=== PATIENT | male | born 1965 | race Caucasian/White ===

== ENCOUNTER 2021-06-30 16:57 | Inpatient (IN) | payer OTHER ==
[~2021-06-30] VITALS: Ht 177.8 cm; Wt 65.3 kg
[~2021-06-30 16:57] MED LIST: ZOFRAN4 MG PO
[2021-06-30 17:13] VITALS: BP 184/115
[2021-06-30 17:36] LABS: ABSOLUTE BASOPHILS 0.1 thou/uL (0.0-0.2); ABSOLUTE EOSINOPHILS 0.1 thou/uL (0.0-0.7); ABSOLUTE MONOCYTES 0.5 thou/uL (0.0-1.2); ABSOLUTE NEUTROPHILS 6.7 thou/uL (1.6-8.1); BASOPHILS 1.2 %; EOSINOPHILS 0.7 %; HEMATOCRIT 38.2 % (42.0-52.0); HEMOGLOBIN 13.1 gm/dL (14.0-18.0); LYMPHOCYTES 21.4 %; MCH 35.9 pg (26.0-34.0); MCHC 34.3 g/dL (28.0-37.0); MCV 104.9 fL (80.0-100.0); MONOCYTES 5.8 %; MPV 8.1 fl. (7.2-11.1); NUCLEATED RBCS 0 /100WBC; PLATELET COUNT* 153 thou/uL (150-400); POLYS 70.9 %; RBC 3.64 mil/uL (4.50-6.00); RDW-CV 13.5 % (10.5-14.5); WBC 9.5 thou/uL (4.0-11.0)
[2021-06-30 17:49] LABS: CALCIUM 8.5 mg/dL (8.5-10.1); CREATININE 0.8 mg/dL (0.6-1.3); POTASSIUM 3.5 mmol/L (3.5-5.1)
[2021-06-30 20:03] LABS: URINE BILIRUBIN NEGATIVE (Negative); URINE BLOOD 2+ (Negative); URINE CLARITY CLEAR; URINE COLOR YELLOW; URINE GLUCOSE-RANDOM NEGATIVE (Negative); URINE KETONES NEGATIVE (Negative); URINE LEUKOCYTES-REFLEX NEGATIVE (Negative); URINE NITRITE-REFLEX NEGATIVE (Negative); URINE PROTEIN TRACE (Negative); URINE SPECIFIC GRAVITY <= 1.005 (1.005-1.030)
[2021-06-30 20:13] LABS: BACTERIA-REFLEX 1-9 Few /HPF (None Seen); CASTS None Seen /LPF (None Seen); SQUAMOUS 0-3 Few /LPF (0-3); URINE RBC 3-10 Few /HPF (0-2); URINE WBC-REFLEX 0-5 Rare /HPF (0-5)
[2021-06-30 20:14] LABS: CRYSTALS None Seen /LPF (None Seen)
[2021-06-30 23:20] LABS: INFLUENZA A ANTIGEN Negative (Negative); INFLUENZA B ANTIGEN Negative (Negative)
[2021-07-01] VITALS (7 sets, daily range): BP systolic 144–175; BP diastolic 79–105
[2021-07-01 16:38] LABS: AMP/METHAMP Negative (Negative); BARBITURATES Negative (Negative); BENZODIAZEPINES Negative (Negative); COCAINE Negative (Negative); METHADONE Negative (Negative); OPIATES POSITIVE (Negative); PCP Negative (Negative); THC Negative (Negative)
--- NOTE | 2021-07-01 16:39 | EKG ---
[place] [address] ELECTROCARDIOGRAM REPORT Name: CLEVELANDSTEPHEN Room: [place] [address] ADM IN [facility]#: [id number] Admission: 06/30/21 Attend Phys: Giulia Sanderson, Discharge: Date of : 65 Date of Service: 06/30/21 1734 Report #: [id number] THIS REPORT FOR: //name// [facility] ED Test Date: 2021-06-30 Test Time: 17:34:00 Pat Name: STEPHEN CLEVELAND Department: Room: [facility] Gender: M Tour Actor: LUCHO : 1965 Requested By: Georgiana Gomes Order Number: [id number] MD: Gregory Mac Measurements Intervals [place] Rate: 95 P: 57 IL: 205 QRS: 67 QRSD: 113 T: 60 QT: 396 QTc: 498 Interpretive Statements Sinus rhythm Prolonged [place] interval Probable left atrial enlargement Inferior infarct, old Baseline wander in lead(s) I,II,aVR,V1 No previous ECG available for comparison Electronically Signed On 07-01-2021 16:39:21 [employer] by Gregory Mac [email or web address] <ELECTRONICALLY SIGNED> By: Gregory Mac MD, FACC 07/01/21 1639 1734 1734 Gregory Mac MD, FAC /EPI
[2021-07-02 00:32] VITALS: BP 182/112
[2021-07-02 04:02] LABS: HEMATOCRIT 39.2 % (42.0-52.0); HEMOGLOBIN 13.1 gm/dL (14.0-18.0); MCH 35.3 pg (26.0-34.0); MCHC 33.4 g/dL (28.0-37.0); MCV 105.6 fL (80.0-100.0); MPV 9.6 fl. (7.2-11.1); NUCLEATED RBCS 0 /100WBC; PLATELET COUNT* 148 thou/uL (150-400); RBC 3.71 mil/uL (4.50-6.00); RDW-CV 13.6 % (10.5-14.5)
[2021-07-02 04:19] LABS: CALCIUM 8.4 mg/dL (8.5-10.1); CREATININE 0.8 mg/dL (0.6-1.3); POTASSIUM 3.4 mmol/L (3.5-5.1)
[2021-07-02 04:40] VITALS: BP 163/97
[2021-07-02 06:26] LABS: ABSOLUTE LYMPHOCYTES 0.6 thou/uL (0.8-5.3); ABSOLUTE MONOCYTES 0.8 thou/uL (0.0-1.2); ABSOLUTE NEUTROPHILS 10.6 thou/uL (1.6-8.1)
[2021-07-02 06:27] LABS: PLATELET ESTIMATE ADEQUATE
[2021-07-02 06:28] LABS: LARGE PLATELETS OCCASIONAL; MACROCYTES 1+
[2021-07-02 08:00] VITALS: BP 172/89
[2021-07-02 11:30] VITALS: BP 136/92
[2021-07-02 16:24] VITALS: BP 154/91
[2021-07-02 19:40] VITALS: BP 159/89
[2021-07-03 00:21] VITALS: BP 183/109
[2021-07-03 04:15] LABS: HEMATOCRIT 36.2 % (42.0-52.0); HEMOGLOBIN 12.2 gm/dL (14.0-18.0); MCH 35.5 pg (26.0-34.0); MCHC 33.7 g/dL (28.0-37.0); MCV 105.2 fL (80.0-100.0); MPV 9.8 fl. (7.2-11.1); RBC 3.44 mil/uL (4.50-6.00); RDW-CV 13.3 % (10.5-14.5); WBC 8.9 thou/uL (4.0-11.0)
[2021-07-03 04:22] LABS: CALCIUM 8.2 mg/dL (8.5-10.1); CREATININE 0.8 mg/dL (0.6-1.3); MAGNESIUM 1.4 mg/dL (1.8-2.4); POTASSIUM 3.4 mmol/L (3.5-5.1)
[2021-07-03 04:43] VITALS: BP 181/103
[2021-07-03 07:56] VITALS: BP 176/108
[2021-07-03 12:00] VITALS: BP 157/91
[2021-07-03 16:00] VITALS: BP 165/97
[2021-07-03 20:00] VITALS: BP 151/99
[2021-07-04] VITALS (7 sets, daily range): BP systolic 139–165; BP diastolic 91–109
[2021-07-04 04:19] LABS: ABSOLUTE LYMPHOCYTES 0.4 thou/uL (0.8-5.3); ABSOLUTE MONOCYTES 0.5 thou/uL (0.0-1.2); ABSOLUTE NEUTROPHILS 6.4 thou/uL (1.6-8.1); BASOPHILS 0.1 %; HEMATOCRIT 36.9 % (42.0-52.0); HEMOGLOBIN 12.5 gm/dL (14.0-18.0); MCH 35.5 pg (26.0-34.0); MCHC 33.9 g/dL (28.0-37.0); MCV 104.8 fL (80.0-100.0); MONOCYTES 6.5 %; MPV 10.1 fl. (7.2-11.1); NUCLEATED RBCS 0 /100WBC; PLATELET COUNT* 137 thou/uL (150-400); POLYS 87.4 %; RBC 3.52 mil/uL (4.50-6.00); RDW-CV 13.4 % (10.5-14.5); WBC 7.3 thou/uL (4.0-11.0)
[2021-07-04 04:31] LABS: ALBUMIN 2.6 g/dL (3.4-5.0); CALCIUM 8.2 mg/dL (8.5-10.1); CREATININE 0.9 mg/dL (0.6-1.3); MAGNESIUM 1.4 mg/dL (1.8-2.4); PHOSPHORUS* 3.7 mg/dL (2.5-4.9); POTASSIUM 3.8 mmol/L (3.5-5.1); TOTAL BILIRUBIN 0.4 mg/dL (<0.1-1.0)
[2021-07-04] MEDS ORDERED: NORVASC5 MG PO (11:06)
[2021-07-04] MEDS ORDERED: PREDNISONE 10 M10 MG PO (11:08)
[2021-07-04] MEDS ORDERED: LEVOFLOXACIN500 MG PO (11:08)
[2021-07-05 00:22] VITALS: BP 163/100
[2021-07-05 05:15] VITALS: BP 166/96
[2021-07-05 08:10] VITALS: BP 168/99
[2021-07-05 12:00] VITALS: BP 158/89
[2021-07-05 14:26] VITALS: BP 158/89
[2021-07-05 16:00] VITALS: BP 134/87
== END 2021-07-05 17:09 | disposition home or self-care (01) | DRG 177 ==
LOC: M.ERS 16:57 → M.TBA-ER 20:14 → M.ORTHSURG 07-01 19:14 → M.2W 07-04 16:35
PROVIDERS: Internal Medicine; Physician Assistant; ADMIT Internal Medicine; ATTEND Internal Medicine
DX: J69.0 Pneumonitis due to inhalation of food and vomit (principal); J96.01 Acute respiratory failure with hypoxia; G92.9 Unspecified toxic encephalopathy; N12 Tubulo-interstitial nephritis, not specified as acute or chronic; T17.890A Other foreign object in other parts of respiratory tract causing asphyxiation, initial encounter; K59.00 Constipation, unspecified; F10.20 Alcohol dependence, uncomplicated; X58.XXXA Exposure to other specified factors, initial encounter; T50.905A Adverse effect of unspecified drugs, medicaments and biological substances, initial encounter; K52.9 Noninfective gastroenteritis and colitis, unspecified; B99.8 Other infectious disease; H10.89 Other conjunctivitis; F17.200 Nicotine dependence, unspecified, uncomplicated; Z20.822 Contact with and (suspected) exposure to COVID-19; Z79.899 Other long term (current) drug therapy; Y93.89 Activity, other specified; Y92.89 Other specified places as the place of occurrence of the external cause; Y99.8 Other external cause status; Z23 Encounter for immunization